=== PATIENT | female | born 1930 | race Caucasian/White ===

== ENCOUNTER 2017-02-02 06:49 | Emergency (ER) | payer MEDICARE, BC ==
[~2017-02-02] VITALS: Ht 162.6 cm; Wt 79.0 kg
[2017-02-02] MEDS ORDERED: AMLO10TA2 PO (07:25)
[2017-02-02] MEDS ORDERED: ATEN25TA PO (07:25)
[2017-02-02] MEDS ORDERED: LEVO137T2 PO (07:25)
[2017-02-02] MEDS ORDERED: SIMV20TA3 PO (07:25)
[2017-02-02] MEDS ORDERED: VALS1TAB26 PO (07:25)
[2017-02-02] MEDS ORDERED: METF500T27 PO (07:25)
[2017-02-02 08:46] VITALS: BP 133/78
== END 2017-02-02 09:07 | disposition home or self-care (01) ==
LOC: ED 08:45
DX: S56.911A Strain of unspecified muscles, fascia and tendons at forearm level, right arm, initial encounter (principal); M77.9 Enthesopathy, unspecified
CPT/HCPCS: 99284

== ENCOUNTER 2017-09-22 08:41 | Observation (INO) | payer MEDICARE, BC ==
[~2017-09-22] VITALS: Ht 162.6 cm; Wt 74.0 kg
[~2017-09-22 08:41] MED LIST: AMLO10TA2 PO; ATEN25TA PO; LEVO137T2 PO; METF500T27 PO; SIMV20TA3 PO; VALS1TAB26 PO
[2017-09-22] MEDS ORDERED: NITROGLYCERIN OINT 2%, 1GM TP ONE ×2 (09:28→09:30)
[2017-09-22 09:36] LABS: HEMOGLOBIN 14.3 g/dL (11.7-16.4); WHITE BLOOD COUNT 6.7 x10^3/uL (3.4-10)
[2017-09-22 09:45] LABS: BLOOD UREA NITROGEN 24 mg/dL (7-18)
[2017-09-22 09:49] LABS: IS PT STATUS REG ER OR PRE ER? YES
[2017-09-22 11:40] VITALS: BP 130/75
[2017-09-22 11:44] VITALS: BP 130/75
[2017-09-22] MEDS ORDERED: hydrALAzine 20 MG/ML, 1ML IVPush PRN (14:30)
[2017-09-22] MEDS ORDERED: morphine SULFATE 10 MG/ML, 1ML IVPush PRN (14:30)
[2017-09-22] MEDS ORDERED: HYDROcodone/APAP 5/325 TABLET PO PRN (14:30)
[2017-09-22] MEDS ORDERED: NITROGLYCERIN 0.4 MG BOTTLE (25 TABS) SL PRN (14:30)
[2017-09-22] MEDS ORDERED: ONDANSETRON 2MG/ML, 2ML IVPush PRN (14:30)
[2017-09-22] MEDS ORDERED: POLYETHYLENE GLYCOL 17 GM PACKET PO PRN (14:30)
[2017-09-22] MEDS ORDERED: ACETAMINOPHEN 325 MG TABLET PO PRN (14:30)
[2017-09-22] MEDS ORDERED: TEMAZEPAM 15 MG CAPSULE PO PRN (14:30)
[2017-09-22 15:02] VITALS: BP 132/76
[2017-09-22] MEDS: ENOXAPARIN 40 MG/0.4 ML SQ SCH (16:10)
[2017-09-22] MEDS: SODIUM CHLORIDE 0.9% 1,000 ML IV SCH (16:10)
[2017-09-22 19:52] VITALS: BP 111/64
[2017-09-22 22:39] LABS: IS PT STATUS REG ER OR PRE ER? NO
[2017-09-23 02:56] VITALS: BP 121/71
[2017-09-23] MEDS: SODIUM CHLORIDE 0.9% 1,000 ML IV SCH (04:22)
[2017-09-23 06:03] LABS: BLOOD UREA NITROGEN 20 mg/dL (7-18)
[2017-09-23 06:12] LABS: IS PT STATUS REG ER OR PRE ER? NO
[2017-09-23] MEDS ORDERED: PANTOPROZOLE 40MG TABLET PO SCH (07:30)
[2017-09-23 07:38] VITALS: BP 126/70
[2017-09-23] MEDS ORDERED: REGADENOSON 0.4 MG/5 ML SYRINGE ONE (08:20)
[2017-09-23] MEDS: ENOXAPARIN 40 MG/0.4 ML SQ SCH (15:13)
[2017-09-23] MEDS ORDERED: OMEP-110 PO (15:21)
== END 2017-09-23 18:18 | disposition home or self-care (01) ==
LOC: ED 10:06 → EDIP 10:07 → INTOOBSV 10:07 → ED 10:28 → 5SO 11:32
PROVIDERS: ADMIT Hospitalist; ATTEND Internal Medicine
DX: R07.89 Other chest pain (principal); E11.9 Type 2 diabetes mellitus without complications; E78.5 Hyperlipidemia, unspecified; E89.0 Postprocedural hypothyroidism; I10 Essential (primary) hypertension; Z80.49 Family history of malignant neoplasm of other genital organs
CPT/HCPCS: 36415; 71010; 78452; 80048; 82040; 83880; 84439; 84443; 84484; 85025; 85610; 93005; 93017; 96360; 96361; 96372; 99285; A9502; C9898; G0378; J1650; J2785; J7030